=== PATIENT | male | born 1990 ===

== ENCOUNTER 2020-01-14 13:18 | Emergency (ER) | payer OTHER ==
[~2020-01-14] VITALS: Ht 167 cm; Wt 70.7 kg
[2020-01-14] MEDS ORDERED: TETANUS,DIPTH,PERTUSS P/F (BOOSTRIX) 0.5 ML VIAL IM ONE ×2 (13:25→13:30)
--- NOTE | 2020-01-14 13:28 | NUR ---
frank shot given lot number [id number], expiration 03/15/2021
[2020-01-14] MEDS ORDERED: cefTRIAXone 1,000 MG/2.86 ml vial (IM ONLY) IM SCH (13:30)
[2020-01-14] MEDS ORDERED: LIDOCAINE 1% INJ 20 ML 20 ML VIAL INJ ONE (13:30)
--- NOTE | 2020-01-14 13:32 | ED Upper Extremity ---
General Chief Complaint: Upper Extremity Stated Complaint: HAND INJ/LACERATION Source: patient Exam Limitations: no limitations History of Present Illness Date Seen by Provider: Jan 14, 2020 Time Seen by Provider: 13:31 Initial Comments To ER with a laceration to the right thumb. He smashed it in a door just prior to arrival. Onset: just prior to arrival Severity: moderate Pain/Injury Location: right thumb Method of Injury: direct blow Modifying Factors: Worse With Movement Allergies and Home Medications Allergies Coded Allergies: No Known Drug Allergies (Unverified , 01/14/20) Home Medications Cephalexin 500 Mg Tablet, 500 MG PO QID Prescribed by: MARLENE LEVY on 01/14/20 1421 Hydrocodone/Acetaminophen 1 Each Tablet, 1 EACH PO Q4-6HR PRN for PAIN-MODERATE Prescribed by: MARLENE LEVY on 01/14/20 1422 Patient Home Medication List Home Medication List Reviewed: Yes Review of Systems Constitutional: see HPI EENTM: see HPI Respiratory: no symptoms reported Cardiovascular: no symptoms reported Genitourinary: no symptoms reported Musculoskeletal: no symptoms reported Skin: no symptoms reported Psychiatric/Neurological: No Symptoms Reported Physical Exam Vital Signs Vital Signs - First Documented 01/14/20 13:18 Temp 36.9 Pulse 79 B/P (MAP) 142/88 (106) Pulse Ox 97 O2 Delivery Room Air Capillary Refill : Height, Weight, BMI Height: '" Weight: lbs. oz. kg; BMI Method: General Appearance: WD/WN, no apparent distress HEENT: PERRL/EOMI, normal ENT inspection Respiratory: no respiratory distress Shoulder: normal inspection, non-tender Elbow/Forearm: normal inspection, non-tender Wrist: Yes normal inspection, Yes non-tender Hand: Right, laceration (nail avulsion with nail bed laceration) Neurologic/Psychiatric: alert, normal mood/affect, oriented x 3 Skin: normal color, warm/dry Procedures/Interventions Wound Location: Upper Extremities Wound Length (cm): 2 Wound's Depth, Shape: linear, bone Wound Explored: clean Anesthesia: 1% Lidocaine Volume Anesthetic (ccs): 8 Suture: Ethlion, Monocryl Number of Sutures: 12 Layer Closure?: 1 Number Deep Layer Sutures: 0 Digital block was done using 8 mL of 1% lidocaine without epinephrine. The nail which was mostly avulsed was completely removed. It was pulled from the proximal nail fold. The distal nail bed laceration was sutured with simple interrupted sutures size 5-0 Monocryl, the foil from the packaging of the Monocryl was used to splint the proximal nail fold and held in place with 2 simple interrupted sutures size 5-0 Ethilon. Progress/Results/Core Measures Results/Orders My Orders Orders - MARLENE LEVY APRN Hand, Right, 3 Views (01/14/20 13:28) Dipht,Pertuss(Acell),Tet Adult (Boostrix (01/14/20 13:30) Ceftriaxone For Im Use (Rocephin For Im (01/14/20 13:30) Lidocaine 1% Inj 20 Ml (Xylocaine 1% Inj (01/14/20 13:30) Hydrocodone/Apap 5/325 Tablet (Lortab 5 (01/14/20 14:45) Medications Given in ED Current Medications Medications Dose Ordered Sig/Dee Dee Route Start Time Stop Time Status Last Admin Dose Admin Diphtheria/ Tetanus/Acell Pertussis 0.5 ml STK-MED ONCE IM 01/14/20 13:25 01/14/20 13:27 DC 01/14/20 13:28 0.5 ML Vital Signs/I&O 01/14/20 13:18 Temp 36.9 Pulse 79 B/P (MAP) 142/88 (106) Pulse Ox 97 O2 Delivery Room Air Departure Impression Primary Impression: Laceration of finger of right hand with damage to nail Qualified Codes: S61.111A - Laceration without foreign body of right thumb with damage to nail, initial encounter Additional Impression: Laceration of finger of right hand with complication Qualified Codes: S61.219A - Laceration without foreign body of unspecified finger without damage to nail, initial encounter Disposition: HOME, SELF-CARE Condition: Stable Departure-Patient Inst. Decision time for Depature: 14:19 Patient Instructions: Laceration Repair With Stitches (DC) Add. Discharge Instructions: 1. Come back here on Tuesday so that I can remove the bandage, replacing it with a Band-Aid and give you a splint. After this you may cover this with just a simple Band-Aid. Return to ER in about 10 days to have the foil removed. The other stitches will dissolve on their own. All discharge instructions reviewed with patient and/or family. Voiced understanding. Scripts Hydrocodone/Acetaminophen (Lorcet 5-325 mg Tablet) 1 Each Tablet 1 EACH PO Q4-6HR PRN for PAIN-MODERATE MDD 10 for 7 Days, #14 TAB Prov: MARLENE LEVY APRN 01/14/20 Cephalexin (Cephalexin) 500 Mg Tablet 500 MG PO QID, #20 TAB 0 Refills Prov: MARLENE LEVY APRN 01/14/20 MARLENE LEVY APRN Jan 14, 2020 13:32
--- NOTE | 2020-01-14 13:54 | Diagnostic Imaging Report ---
INDICATION: Laceration, crush injury. COMPARISON: None available. TECHNIQUE: Four radiographs of the right hand dated 01/14/2020. FINDINGS: Acute fracturing of the distal shaft of the 1st digit distal phalanx is noted. There is slight apex posterior angulation with very minimal anterior displacement. Overlying soft tissue injury is suspected. Bandage is in place. Small radiopaque densities are seen overlying this location. No additional acute fracture or dislocation. No destructive osseous process. Multiple punctate radiopaque densities are identified overlying the fingers. IMPRESSION: Acute minimally displaced angulated fracture involving the distal shaft of the 1st digit distal phalanx with associated overlying soft tissue injury. Multiple punctate radiopaque densities overlying the hand, particularly the fingers. Recommend clinical correlation for small foreign bodies. Dictated by: Dictated on workstation # [id number]
[2020-01-14] MEDS ORDERED: HYDR-3870 PO (14:21)
[2020-01-14] MEDS ORDERED: CEPH500T PO (14:21)
[2020-01-14] MEDS ORDERED: WATER (STERILE) FOR INJECTION 10 ML ONE (14:36)
[2020-01-14] MEDS ORDERED: HYDROcodone/APAP 5 MG/325 MG (LORTAB) TAB PO ONE (14:45)
[2020-01-14 14:51] VITALS: BP 142/88
--- OUTSIDE RECORDS SUMMARY | 2020-01-14 17:30 | XMS REPORT | Continuity of Care Document ---
Author Organization Unknown Address Unknown Phone Unavailable Allergies Active Description Code Type Severity Reaction Onset Reported/Identified Relationship to Patient Clinical Status Yes No Known Drug Allergies [id number] Drug Allergy Unknown N/A 01/14/2020 Medications There is no data. Problems There is no data. Procedures There is no data. Results There is no data. Encounters ACCT No. Visit Date/Time Discharge Status Pt. Type Provider Facility Loc./Unit Complaint [id number] 01/14/2020 13:19:00 020 14:54:00 DIS Emergency MARLENE LEVY APRN [facility] ER HAND INJ/LACERATION
== END 2020-01-14 14:54 | disposition home or self-care (01) ==
LOC: ER 13:19
DX: S61.111A Laceration without foreign body of right thumb with damage to nail, initial encounter (principal); Z23 Encounter for immunization; W23.0XXA Caught, crushed, jammed, or pinched between moving objects, initial encounter
CPT/HCPCS: 12002; 73130; 90715